=== PATIENT | female | born 1980 | race Caucasian/White ===

== ENCOUNTER 2016-12-21 07:05 | Day surgery (SDC) | payer OTHER ==
[~2016-12-21] VITALS: Ht 175.3 cm; Wt 104.3 kg
[~2016-12-21 07:05] MED LIST: 0.9% Sodium Chloride 1,000 ML IV SCH; LEVO200T PO; LORA10CA PO; MELO-253 PO; PREG100C PO; SERT20OR PO; Sodium Chloride LOK Flush 10 mL Syringe IV PRN; fentaNYL-PF 50 mCg/mL 2 mL Inj IVPUSH PRN
[2016-12-21 07:23] VITALS: BP 125/73; PULSE 76; RESP 14; O2SAT 96
[2016-12-21] MEDS ORDERED: CHOL500011 PO (07:26)
[2016-12-21 08:37] VITALS: BP 130/66; PULSE 75; RESP 16; O2SAT 96
[2016-12-21 08:47] VITALS: BP 121/61; PULSE 74; RESP 16; O2SAT 95
[2016-12-21 08:51] VITALS: BP 135/78; PULSE 78; RESP 16; O2SAT 96
--- NOTE | 2016-12-21 08:56 | ENDO ---
[address] [address] ENDOSCOPY PROCEDURE PATIENT: RYAN ALFRED : 1980 MR#: [id number] ADMIT: 12/21/2016 JOB ID: [id number] DATE: 12/21/2016 TYPE OF OPERATION: 1. Esophagogastroduodenoscopy with biopsy. 2. Colonoscopy. PREOPERATIVE DIAGNOSIS(ES): Rule out esophageal varices and rectal bleeding. POSTOPERATIVE DIAGNOSIS(ES): 1. Widely open, patent Schatzki ring. 2. Normal colonoscopy. ANESTHESIA: 1. Fentanyl 200 mcg. 2. Versed 10 mg IV administered. COMPLICATIONS: None. BLOOD LOSS: Minimal. DESCRIPTION OF PROCEDURE: After risks and benefits were explained to the patient, informed consent was obtained. After anesthesia administered, upper endoscope was inserted in mouth intubating the esophagus, stomach, second portion of duodenum. Mucosa carefully examined. After procedure was done, the scope was withdrawn and the procedure terminated. A colonoscope was inserted from the rectum to the cecum. Mucosa carefully examined. Prep of the patient was fair. After procedure was done, the scope withdrawn and procedure terminated. FINDINGS: Upon inspection of the esophagus, there was a widely open, patent Schatzki ring located in the distal esophagus. Z-line located 40 cm from the incisors. Upon entering the stomach, the stomach appeared normal without masses, ulcers, or lesions. There are no esophageal gastric varices that were seen. Retroflexion was normal. Duodenal bulb, first and second portions were normal. Biopsies taken at the distal esophagus. Upon inspection of the anus, no masses, hemorrhoids, ulcers or fissures that were seen. Throughout the entire examination, there were no polyps, masses or lesions. Retroflexion was normal. IMPRESSIONS: 1. Normal colonoscopy. 2. Widely open, patent Schatzki ring. RECOMMENDATION: 1. GERD diet. 2. Omeprazole 20 mg by mouth once a day. 3. Followup in GI clinic as needed. 4. Repeat colonoscopy at the age of 50 for colorectal cancer screening.
--- NOTE | 2016-12-22 11:40 | PATH ---
SURGICAL PATHOLOGY Attending Physician:Enrrique Thornton MD CASE STATUS: Signed Out PATIENT NAME: RYAN ALFRED PID: [id number] : 1980 DATE COLLECTED:12/21/2016 16:48 SPECIMEN: Esophagus, Biopsy CLINICAL HISTORY: 1.DISTAL ESOPHAGUS FINAL DIAGNOSIS: 1.DISTAL ESOPHAGUS BIOPSY: SQUAMOCOLUMNAR MUCOSA WITH REACTIVE CHANGES CONSISTENT WITH REFLUX. Negative for intestinal metaplasia. Negative for dysplasia and malignancy. ICD10 code K21.9 GROSS DESCRIPTION: The specimen is received in one formalin filled container labeled with the patient's name, sublabeled "distal esophagus" and consists of 3 portions of tissue which aggregate to 0.2 x 0.2 x 0.2 CM. The specimen is entirely submitted in one cassette. 12/21/2016 [facility] MICRO DESCRIPTION: See diagosis. ICD-9 CODES: CPT CODES: 1: 78328 Electronically Signed Out Kady Nixon MD [facility] [address], [place] [address] Technical component performed at [facility], [facility], [facility] [address], [place], [address]
== END 2016-12-21 23:59 | disposition home or self-care (01) ==
LOC: END 07:05
PROVIDERS: ATTEND Internal Medicine Gastroenterology
DX: K62.5 Hemorrhage of anus and rectum (principal); K22.2 Esophageal obstruction; I10 Essential (primary) hypertension; F32.9 Major depressive disorder, single episode, unspecified; M79.7 Fibromyalgia; Z85.850 Personal history of malignant neoplasm of thyroid
CPT/HCPCS: 43239; 45378; 88305; 99153; G0500; J7030